=== PATIENT | female | born 1985 | race Hispanic/Latino ===

== ENCOUNTER 2023-12-29 07:46 | Day surgery (SDC) | payer OTHER ==
[2023-12-24 15:09] LABS: BASOPHILS # (AUTO) 0.06 K/uL (0.00-0.20); BASOPHILS % (AUTO) 0.8 % (0.0-5.0); EOSINOPHILS # (AUTO) 0.13 K/uL (0.00-0.70); EOSINOPHILS % (AUTO) 1.8 % (0.0-8.0); HEMATOCRIT 39.6 % (36-48); IMMATURE GRANULOCYTE ABSOLUTE 0.02 K/uL (0-1); LYMPHOCYTES # (AUTO) 2.9 K/uL (1.0-4.8); MEAN CORPUSCULAR HEMOGLOBIN 31.7 pg (27.0-33.0); MEAN CORPUSCULAR HGB CONC 33.8 g/dL (32.0-36.0); MEAN CORPUSCULAR VOLUME 93.6 fL (79-99); MONOCYTES # (AUTO) 0.4 K/uL (0.1-1.0); MONOCYTES % (AUTO) 5.6 % (3.0-13.0); NEUTROPHILS # (AUTO) 3.6 K/uL (1.8-7.7); NEUTROPHILS % (AUTO) 50.5 % (40.0-77.0); PLATELET COUNT (AUTO) 340 K/uL (130-400); RED BLOOD CELL COUNT(AUTO) 4.23 MIL/uL (4.00-5.50); RED CELL DISTRIBUTION WIDTH 13.2 % (11.0-15.5); WHITE BLOOD COUNT (AUTO) 7.1 K/uL (4.8-10.8)
[2023-12-24 15:20] LABS: CREATININE 0.7 mg/dL (0.5-1.5); POTASSIUM 4.2 mmol/L (3.5-5.1)
[2023-12-24 15:22] VITALS: BP 106/68; PULSE 62; RESP 17
[2023-12-24 15:23] LABS: INR <= 0.93 (0.85-1.15); PROTHROMBIN TIME 10.5 SEC (9.6-11.6)
[2023-12-24 15:24] LABS: PARTIAL THROMBOPLASTIN TIME 31.6 SEC (26.3-35.5)
[~2023-12-29] VITALS: Ht 157.5 cm; Wt 63.4 kg
[2023-12-29] VITALS (15 sets, daily range): BP systolic 98–110; BP diastolic 4–68; PULSE 52–63; RESP 13–21
[2023-12-29] MEDS ORDERED: FENTANYL CITRATE PF 50 MCG/1 ML 2ML VIAL ONE ×2 (08:55→10:39)
[2023-12-29] MEDS ORDERED: MIDAZOLAM HCL 1 MG/ML 2ML VIAL ONE (08:55)
[2023-12-29] MEDS ORDERED: ONDANSETRON 4MG INJ ONE (08:55)
[2023-12-29] MEDS ORDERED: ROCURONIUM BROMIDE 10MG/1ML 5ML VL ONE (08:55)
[2023-12-29] MEDS ORDERED: PROPOFOL 10 MG/ML 20ML VIAL IV ONE (08:55)
[2023-12-29] MEDS: LACTATED RINGERS 1000ML 1,000 ML IV ONE (09:06)
[2023-12-29] MEDS: CEFAZOLIN SODIUM 2 GM VIAL ONE (09:06)
[2023-12-29] MEDS ORDERED: ROPIVACAINE 0.5% 5MG/ML 30ML ONE (09:10)
[2023-12-29] MEDS ORDERED: DEXAMETHASONE SOD PHOSPHATE 10MG/ML 1ML VIAL ONE (09:12)
[2023-12-29] MEDS: CEFAZOLIN SODIUM 2 GM VIAL IVPB ONE (09:47)
[2023-12-29] MEDS: BUPIVACAINE/PF 0.25% 30ML VIAL IJ ONE (09:48)
[2023-12-29] MEDS ORDERED: MEPERIDINE-PF 25 MG/ML SYG ONE (09:59)
[2023-12-29] MEDS ORDERED: GLYCOPYRROLATE 0.2 MG/ML 5 ML VIAL ONE (10:17)
[2023-12-29] MEDS ORDERED: NEOSTIGMINE METHYLSULFATE 1MG/ML IV ONE (10:17)
[2023-12-29] MEDS ORDERED: ACET-2079 PO (10:23)
[2023-12-29] MEDS ORDERED: METH-662 PO (10:23)
[2023-12-29] MEDS ORDERED: DOCU-116 PO (10:23)
[2023-12-29] MEDS ORDERED: GABA-529 PO (10:23)
[2023-12-29] MEDS ORDERED: LACTATED RINGERS 1000ML 1,000 ML IV ONE (11:05)
== END 2023-12-29 12:40 | disposition home or self-care (01) ==
LOC: DAH 07:46
PROVIDERS: ATTEND Surgery
DX: K43.0 Incisional hernia with obstruction, without gangrene (principal); Z79.899 Other long term (current) drug therapy; Z79.01 Long term (current) use of anticoagulants
CPT/HCPCS: 80048; 84703; 85025; 85610; 85730; 36415; 49614; 81025; 64488; A6260; A4663; J7030 ×2; J7120 ×2; J3010 ×2; J1100; J0665; J3490 ×2; J2250; J2704; J2405; J2710; J2175; J2795; J0690 ×2; C1769 ×2; A4649 ×2; A4930 ×2; A4215; A4223; A4222; A4221; A4600